=== PATIENT | male | born 1990 | race Hispanic/Latino ===

== ENCOUNTER 2018-11-03 10:11 | Emergency (ER) | payer OTHER ==
[2018-11-03 10:49] LABS: RAPID GROUP A STREP NEGATIVE (NEGATIVE)
== END 2018-11-03 11:10 | disposition home or self-care (01) ==
LOC: EDH 10:11
DX: S30.861A Insect bite (nonvenomous) of abdominal wall, initial encounter (principal); J10.1 Influenza due to other identified influenza virus with other respiratory manifestations; W57.XXXA Bitten or stung by nonvenomous insect and other nonvenomous arthropods, initial encounter; Y93.89 Activity, other specified; Y92.89 Other specified places as the place of occurrence of the external cause; Y99.8 Other external cause status
CPT/HCPCS: 87804; 87880